=== PATIENT | male | born 1960 | race Caucasian/White ===

== ENCOUNTER 2017-08-25 12:12 | Day surgery (SDC) | payer BC ==
[2017-08-25] VITALS (11 sets, daily range): BP systolic 121–139; BP diastolic 75–84
[~2017-08-25] VITALS: Ht 185.4 cm; Wt 82.1 kg
[~2017-08-25 12:12] MED LIST: ASPIRIN81 MG ORAL; BP pill; BSS 15ml BTL ONE; BSS 500ml btl ONE; Bupivacaine 0.75% 30ml vial INJ ONE; Dexamethasone 4mg/ml vial ONE; EPINEPHrine 1mg/1ml Amp ONE; Goniosol 2.5% Opth Soln - 15ml ONE; Lidocaine 2% MPF 5ml Vial INJ ONE; Maxitrol Opth Oint 3.5gm ONE; Neosporin Oph Soln 5ml Btl ONE; Povidone-Iodine 5% opth solution ONE; TAMSULOSIN HCL0.4 MG ORAL; Tetracaine 0.5% Opth 4ml Soln ONE
[2017-08-25] MEDS ORDERED: Cyclopentolate 1% Opth Sol 2ml ONE (12:13)
[2017-08-25] MEDS: Cyclopentolate 1% Opth Sol 2ml RIGHT EYE SCH ×3 (12:42→13:14)
[2017-08-25] MEDS: Phenylephrine 2.5% Op 2ml Soln RIGHT EYE SCH ×3 (12:43→13:14)
[2017-08-25 13:26] LABS: EOSINOPHILS % (AUTO) 0.6 % (0.0-3.0); LYMPHOCYTES % (AUTO) 18.7 % (20.0-45.0); MEAN CORPUSCULAR HEMOGLOBIN 33.7 PG (27.0-31.0); MEAN CORPUSCULAR HGB CONC 35.4 G/DL (32.0-36.0); MEAN CORPUSCULAR VOLUME 95 FL (80-99); MEAN PLATELET VOLUME 6.6 FL (6.5-10.1); MONOCYTES % (AUTO) 8.5 % (1.0-10.0); NEUTROPHILS % (AUTO) 71.2 % (45.0-75.0); PLATELET COUNT 270 K/UL (150-450); RED BLOOD COUNT 4.95 M/UL (4.70-6.10); WHITE BLOOD COUNT 7.1 K/UL (4.8-10.8)
[2017-08-25 13:33] LABS: ANION GAP 14 (5-15); CALCIUM 9.2 mg/dL (8.6-10.2); CARBON DIOXIDE 28 mEQ/L (20-30); CHLORIDE 95 mEQ/L (98-107); CREATININE 0.7 mg/dL (0.7-1.2); GLOMERULAR FILTRATION RATE > 60 mL/min (>60); HEMOLYSIS 11; POTASSIUM 3.4 mEQ/L (3.4-4.9); SODIUM 137 mEQ/L (135-145)
[2017-08-25] MEDS ORDERED: NS Irrig 1000ml ONE (15:00)
[2017-08-25] MEDS ORDERED: Metoclopramide 10mg/2ml Inj ONE (15:00)
[2017-08-25] MEDS ORDERED: Propofol 200mg/20ml IV ONE (15:00)
[2017-08-25] MEDS ORDERED: LR 1000ml ONE (15:00)
[2017-08-25] MEDS ORDERED: Midazolam 2mg/2ml Inj ONE (15:00)
[2017-08-25] MEDS ORDERED: fentaNYL 100 mcg/2 mL IV ONE (15:00)
[2017-08-25] MEDS ORDERED: Sterile Water Irrig 1000ml IRRIG ONE (15:00)
--- NOTE | 2017-08-25 15:03 | Pre-Procedure Note/Attestation ---
Pre-Procedure Note/Attestation Complete Prior to Procedure Planned Procedure: right Procedure Narrative: 23G PPV/SB/MP/EL/gas vs SO right eye Indications for Procedure Pre-Operative Diagnosis: retinal detachment right eye Attestation I attest that I discussed the nature of the procedure; its benefits; risks and complications; and alternatives (and the risks and benefits of such alternatives ), prior to the procedure, with the patient (or the patient's legal logistics service representative). I attest that, if there was a reasonable possibility of needing a blood transfusion, the patient (or the patient's legal logistics service representative) was given the [facility] standardized written summary, pursuant to the [place] Blood Safety Act ([place] Health and Safety Code # 1645, as amended). I attest that I re-evaluated the patient just prior to the surgery and that there has been no change in the patient's H&P, except as documented below: SELAM BAXTER M.D. Aug 25, 2017 15:03
--- NOTE | 2017-08-25 15:50 | Anethesia Preoperative Eval ---
Anesthesia Pre-op PMH/ROS General Date of Evaluation: Aug 25, 2017 Time of Evaluation: 15:02 Anesthesiologist: Dejon ASA Score: ASA 2 Mallampati Score Class I : Soft palate, uvula, fauces, pillars visible Class II: Soft palate, uvula, fauces visible Class III: Soft palate, base of uvula visible Class IV: Only hard plate visible Mallampati Classification: Class II Surgeon: Christa Diagnosis: retinal detachment right eye Surgical Procedure: vitrectomy right eye with scleral buckle and endolaser Anesthesia History: none Family History: no anesthesia problems Allergies: Coded Allergies: PENICILLINS (Verified Allergy, Unknown, 07/14/17) Medications: see eMAR Past Medical History Cardiovascular: Reports: HTN HEENT: Reports: other - detached retina right eye Musculoskeletal/Integumentary: Reports: OA Anesthesia Pre-op Phys. Exam Physician Exam Last Vital Signs Date Time Temp Pulse Resp B/P (MAP) Pulse Ox O2 Delivery O2 Flow Rate FiO2 08/25/17 13:16 97.8 54 20 121/77 95 Room Air Constitutional: NAD Neurologic: CN 2-12 intact Cardiovascular: RRR Respiratory: CTA Gastrointestinal: S/NT/ND Airway Exam Mallampati Score: Class II MO: full ROM: full Teeth: intact Anesthesia Pre-op A/P Labs Hematology Test 08/25/17 13:10 White Blood Count 7.1 K/UL (4.8-10.8) Red Blood Count 4.95 M/UL (4.70-6.10) Hemoglobin 16.7 G/DL (14.2-18.0) Hematocrit 47.1 % (42.0-52.0) Mean Corpuscular Volume 95 FL (80-99) Mean Corpuscular Hemoglobin 33.7 PG (27.0-31.0) H Mean Corpuscular Hemoglobin Concent 35.4 G/DL (32.0-36.0) Red Cell Distribution Width 11.0 % (11.6-14.8) L Platelet Count 270 K/UL (150-450) Mean Platelet Volume 6.6 FL (6.5-10.1) Neutrophils (%) (Auto) 71.2 % (45.0-75.0) Lymphocytes (%) (Auto) 18.7 % (20.0-45.0) L Monocytes (%) (Auto) 8.5 % (1.0-10.0) Eosinophils (%) (Auto) 0.6 % (0.0-3.0) Basophils (%) (Auto) 1.0 % (0.0-2.0) Chemistry Test 08/25/17 13:10 Sodium Level 137 mEQ/L (135-145) Potassium Level 3.4 mEQ/L (3.4-4.9) Chloride Level 95 mEQ/L (98-107) L Carbon Dioxide Level 28 mEQ/L (20-30) Anion Gap 14 (5-15) Blood Urea Nitrogen 7 mg/dL (7-23) Creatinine 0.7 mg/dL (0.7-1.2) Estimat Glomerular Filtration Rate > 60 mL/min (>60) Glucose Level 87 mg/dL (74-106) Calcium Level 9.2 mg/dL (8.6-10.2) Studies Pre-op Studies: EKG - NSB Risk Assessment & Plan Plan: General LMA per patient and surgeon Status Change Before Surgery: No Pre-Antibiotics Given Within 1 Hr of Incision: Vanessa Armando DIE MAINTENANCE Aug 25, 2017 15:50
--- NOTE | 2017-08-25 15:51 | Immediate Post-Op Evaluation ---
Immediate Post-Op Evalulation Immediate Post-Op Evalulation Date of Evaluation: Aug 25, 2017 IV Fluids: LR 800 ml Blood Products: 0 Estimated Blood Loss: 0 Urinary Output: 0 Blood Pressure Systolic: 131 Blood Pressure Diastolic: 83 Pulse Rate: 68 Respiratory Rate: 22 O2 Sat by Pulse Oximetry: 100 Temperature (Fahrenheit): 98 Pain Score (1-10): 0 Nausea: No Vomiting: No Patient Status: awake, reacts, patent Hydration Status: adequate Given Within 1 Hr of Incision: Vanessa Armando CRNA Aug 25, 2017 15:51
--- NOTE | 2017-08-25 15:52 | 48 Hour Post Anesthesia Eval ---
Post Anesthesia Evaluation Date of Evaluation: Aug 25, 2017 Time of Evaluation: 17:06 Blood Pressure Systolic: 133 0: 82 Pulse Rate: 53 Respiratory Rate: 12 Temperature (Fahrenheit): 98 O2 Sat by Pulse Oximetry: 100 Airway: patent Nausea: No Vomiting: No Pain Intensity: 0 Hydration Status: adequate Mental Status/LOC: patient returned to baseline Follow-up care needed: patient intructions given Vanessa Ashford CRNA Aug 25, 2017 15:52
--- NOTE | 2017-08-25 17:05 | Brief Operative Note ---
Immediate Post Operative Note Operative Note Chief Complaint: blurred vision Pre-op Diagnosis: retinal detachment right eye Procedure: 23G PPV/SB/EL/SO right eye Post-op Diagnosis: same as pre-op Findings: consistent w/pre-op dx studies Surgeon: Christa Anesthesia: general Specimen: none Complications: none Condition: stable Fluids: 500cc Estimated Blood Loss: none Drains: none Implant(s) used?: Yes SELAM BAXTER M.D. Aug 25, 2017 17:05
[2017-08-25] MEDS ORDERED: Norco 5mg/325mg tab ORAL PRN (17:15)
--- NOTE | 2017-08-26 02:00 | Operative Note - Dictated ---
DATE OF OPERATION: 08/25/2017 SURGEON: Harpal Goodwin M.D. PREOPERATIVE DIAGNOSIS: Retinal detachment, right eye. POSTOPERATIVE DIAGNOSIS: Retinal detachment, right eye. Name of operation: A 23-gauge pars plana vitrectomy, scleral buckle, endolaser, and silicone oil, right eye. ANESTHESIA: Local. BLOOD LOSS: None. COMPLICATIONS: None. INDICATIONS: The patient is a 57-year-old male with a history of blurred vision in his right eye. He presents with a retinal detachment following repair of a giant retinal tear. The findings were discussed with the patient as well as the risks, benefits, and alternatives to the above-named procedure and the patient wishes to proceed with surgery. The patient understands the risks include, but are not limited to, loss of vision and loss of the eye. Informed consent was obtained. Description of the procedure: On the day of the procedure, the right eye was noted to be the operative eye and marked. The patient received three sets of the standard preoperative eye drops in the holding area. The patient was then brought to the operating room with appropriate anesthesia and monitors were placed. The right eye was again identified as the operative eye during time-out and the nonoperative eye was patched and shielded. The patient then underwent general anesthesia administered by the anesthesiologist. He also received a retrobulbar block consisting of 1:1 mixture of 2% lidocaine without epinephrine and 0.75% bupivacaine for a total of 5 mL. The operative eye was then prepped and draped in the usual sterile ophthalmic fashion. A lid speculum was placed in the operative eye. A 360-degree conjunctival peritomy was performed with nasal and temporal relaxing incisions. The rectus muscles were isolated and looped with 2-0 silk suture. A #42 band was then passed underneath the rectus muscles and fastened superonasally with a #70 sleeve. The buckle was sutured in all 4 quadrants using 5-0 nylon. The buckle was tightened to appropriate tension and the ends trimmed. A 23-gauge cannulas were then inserted with the infusion located inferotemporally. A standard three port pars plana vitrectomy was then performed. The retina was inspected and there was recurrent retinal detachment with a giant retinal tear superiorly. A nasal retinotomy was made using endodiathermy and the subretinal fluid was drained through the retinotomy. An air-fluid exchange was then performed. Endolaser was applied to the retinal break, and in 360 degree barricade fashion, 1000 centistokes of silicone oil was then infused into the eye. The 22-gauge cannulas were then removed. Sclerotomies were sutured using 7-0 Vicryl. The traction sutures were then removed. The patient received additional posterior sub-Ten[place]'s Marcaine. The conjunctival peritomy was sutured using 6-0 plain gut. The wounds were checked for leakage and found to be watertight. The intraocular pressure was palpated and found to be within normal limits. The patient then received subconjunctival injections of vancomycin and dexamethasone. The lid speculum and drapes were then removed. Maxitrol ointment and atropine eye drops were applied to the eye. The eye was patched and shielded. The patient was awakened from general anesthesia by the anesthesiologist. The patient tolerated the procedure well and was returned to the postoperative care area in good condition. Harpal Goodwin M.D. DR: Jaguar JOB#: [id number] CC:
--- NOTE | 2017-09-02 23:20 | Cardiology Report ---
APPROVED REPORT EKG Measurement Heart [id number] CT [id number] [id number] Sinus bradycardia Otherwise normal ECG
== END 2017-08-25 18:16 | disposition home or self-care (01) ==
LOC: SUR 12:12
DX: H33.21 Serous retinal detachment, right eye (principal); H53.8 Other visual disturbances; Z88.0 Allergy status to penicillin; M19.90 Unspecified osteoarthritis, unspecified site; I10 Essential (primary) hypertension
CPT/HCPCS: 36415; 67108; 80048; 85025; 93005; J0171; J1100; J2250; J2405; J2704; J2765; J3010; J3370; J3490; J7120; 94003; 94150

== ENCOUNTER 2017-12-29 10:31 | Day surgery (SDC) | payer BC ==
[~2017-12-29] VITALS: Ht 185.4 cm; Wt 83.9 kg
[2017-12-29] VITALS (8 sets, daily range): BP systolic 127–151; BP diastolic 76–99
[~2017-12-29 10:31] MED LIST changes: -BSS 15ml BTL ONE; -BSS 500ml btl ONE; -Bupivacaine 0.75% 30ml vial INJ ONE; -Dexamethasone 4mg/ml vial ONE; -EPINEPHrine 1mg/1ml Amp ONE; -Goniosol 2.5% Opth Soln - 15ml ONE; -Lidocaine 2% MPF 5ml Vial INJ ONE; -Maxitrol Opth Oint 3.5gm ONE; -Neosporin Oph Soln 5ml Btl ONE; -Povidone-Iodine 5% opth solution ONE; -Tetracaine 0.5% Opth 4ml Soln ONE
[2017-12-29] MEDS ORDERED: Cyclopentolate 1% Opth Sol 2ml ONE (11:12)
[2017-12-29] MEDS ORDERED: Phenylephrine 2.5% Op 2ml Soln ONE (11:12)
[2017-12-29] MEDS: Cyclopentolate 1% Opth Sol 2ml RIGHT EYE SCH ×3 (11:16→11:28)
[2017-12-29] MEDS: Phenylephrine 2.5% Op 2ml Soln RIGHT EYE SCH ×3 (11:16→11:28)
[2017-12-29] MEDS ORDERED: LOSARTAN POTAS100 MG ORAL (11:22)
[2017-12-29] MEDS ORDERED: LR 1000ml 1,000 ML IVLG SCH (12:55)
--- NOTE | 2017-12-29 12:55 | Anethesia Preoperative Eval ---
Anesthesia Pre-op PMH/ROS General Date of Evaluation: Dec 29, 2017 Anesthesiologist: Jose Armando ASA Score: ASA 2 Mallampati Score Class I : Soft palate, uvula, fauces, pillars visible Class II: Soft palate, uvula, fauces visible Class III: Soft palate, base of uvula visible Class IV: Only hard plate visible Mallampati Classification: Class II Surgeon: Christa Diagnosis: Right eye retinal detachment Surgical Procedure: Right eye silicone removal Anesthesia History: none Family History: no anesthesia problems Allergies: Coded Allergies: PENICILLINS (Verified Allergy, Unknown, 07/14/17) Medications: see eMAR Past Medical History Cardiovascular: Reports: HTN, Denies: CAD, TN, valve dz, arrhythmia, other Pulmonary: Denies: asthma, COPD, OBIE, other Gastrointestinal/Genitourinary: Denies: GERD, CRI, ESRD, other Neurologic/Psychiatric: Denies: dementia, CVA, depression/anxiety, TIA, other Endocrine: Denies: DM, hypothyroidism, steroids, other HEENT: Denies: cataract (L), cataract (R), glaucoma, BEAVER (L), BEAVER (R), other Hematology/Immune: Denies: anemia, DVT, bleeding disorder, other Musculoskeletal/Integumentary: Reports: OA, Denies: RA, DJD, DDD, edema, other PSxH Narrative: multiple right eye sx, bilateral TKRs Anesthesia Pre-op Phys. Exam Physician Exam Last Vital Signs Date Time Temp Pulse Resp B/P (MAP) Pulse Ox O2 Delivery O2 Flow Rate FiO2 12/29/17 11:19 98.3 54 18 127/76 97 Room Air Constitutional: NAD Cardiovascular: RRR Respiratory: CTA Airway Exam Mallampati Score: Class II MO: full ROM: full Teeth: intact Anesthesia Pre-op A/P Labs see chart Studies Pre-op Studies: EKG - sr Risk Assessment & Plan Assessment: ASA II Plan: MAC Status Change Before Surgery: No Pre-Antibiotics Drug: N/A KLAUDIA QUIROGA M.D. Dec 29, 2017 12:55
[2017-12-29] MEDS ORDERED: DiphenhydrAMINE 50mg/ml Inj IVP PRN (13:00)
[2017-12-29] MEDS ORDERED: fentaNYL 100 mcg/2 mL IV ONE (13:00)
[2017-12-29] MEDS ORDERED: Propofol 200mg/20ml IV ONE (13:00)
[2017-12-29] MEDS ORDERED: Sterile Water Irrig 1000ml IRRIG ONE (13:00)
[2017-12-29] MEDS ORDERED: LR 1000ml ONE (13:00)
[2017-12-29] MEDS ORDERED: Lidocaine 1% MPF 10mg/ml 5ml ONE (13:00)
[2017-12-29] MEDS ORDERED: Midazolam 2mg/2ml Inj ONE (13:00)
[2017-12-29] MEDS ORDERED: NS Irrig 1000ml ONE (13:00)
[2017-12-29] MEDS ORDERED: Sodium Chloride 10ml vial INJ ONE (13:00)
[2017-12-29] MEDS ORDERED: Kenalog-40 1ml Vial ONE (13:27)
[2017-12-29] MEDS ORDERED: BSS 500ml btl ONE (13:27)
[2017-12-29] MEDS ORDERED: Dexamethasone 4mg/ml vial ONE (13:28)
[2017-12-29] MEDS ORDERED: Maxitrol Opth Oint 3.5gm ONE (13:28)
[2017-12-29] MEDS ORDERED: Povidone-Iodine 5% opth solution ONE (13:28)
[2017-12-29] MEDS ORDERED: Tetracaine 0.5% Opth 4ml Soln ONE (13:28)
--- NOTE | 2017-12-29 13:28 | Pre-Procedure Note/Attestation ---
Pre-Procedure Note/Attestation Complete Prior to Procedure Planned Procedure: right Procedure Narrative: 23G PPV/SO removal/EL/gas vs AFx right eye Indications for Procedure Pre-Operative Diagnosis: retinal detachment Attestation I attest that I discussed the nature of the procedure; its benefits; risks and complications; and alternatives (and the risks and benefits of such alternatives ), prior to the procedure, with the patient (or the patient's legal front desk representative). I attest that, if there was a reasonable possibility of needing a blood transfusion, the patient (or the patient's legal front desk representative) was given the [facility] standardized written summary, pursuant to the [place] Blood Safety Act ([place] Health and Safety Code # 1645, as amended). I attest that I re-evaluated the patient just prior to the surgery and that there has been no change in the patient's H&P, except as documented below: SELAM BAXTER M.D. Dec 29, 2017 13:28
[2017-12-29] MEDS ORDERED: Lidocaine 2% MPF 5ml Vial INJ ONE (13:29)
[2017-12-29] MEDS ORDERED: EPINEPHrine 1mg/1ml Amp ONE (13:29)
[2017-12-29] MEDS ORDERED: Bupivacaine 0.75% 30ml vial INJ ONE (13:30)
[2017-12-29] MEDS ORDERED: Goniosol 2.5% Opth Soln - 15ml ONE (13:30)
[2017-12-29] MEDS ORDERED: BSS 15ml BTL ONE ×2 (13:30→13:40)
--- NOTE | 2017-12-29 14:19 | Immediate Post-Op Evaluation ---
Immediate Post-Op Evalulation Immediate Post-Op Evalulation Procedure: Right eye vitrectomy, endolaser, silicone oil removal, air fluid exchange Date of Evaluation: Dec 29, 2017 Time of Evaluation: 15:08 IV Fluids: 600 Blood Products: 0 Estimated Blood Loss: 0 Urinary Output: 0 Blood Pressure Systolic: 151 Blood Pressure Diastolic: 95 Pulse Rate: 56 Respiratory Rate: 16 O2 Sat by Pulse Oximetry: 98 Temperature (Fahrenheit): 98.3 Pain Score (1-10): 0 Nausea: No Vomiting: No Complications 0 Patient Status: awake, reacts, patent, none Hydration Status: adequate Drug: N/A KLAUDIA QUIROGA M.D. Dec 29, 2017 14:19
--- NOTE | 2017-12-29 14:20 | 48 Hour Post Anesthesia Eval ---
Post Anesthesia Evaluation Procedure: Right eye vitrectomy, endolaser, silicone oil removal, air fluid exchange Date of Evaluation: Dec 29, 2017 Airway: patent Nausea: No Vomiting: No Pain Intensity: 0 Hydration Status: adequate Cardiopulmonary Status: at baseline Mental Status/LOC: patient returned to baseline Post-Anesthesia Complications: 0 Follow-up care needed: ready to discharge KLAUDIA QUIROGA M.D. Dec 29, 2017 14:20
--- NOTE | 2017-12-29 15:04 | Brief Operative Note ---
Immediate Post Operative Note Operative Note Chief Complaint: blurred vision Pre-op Diagnosis: retinal detachment Procedure: 23G PPV/SO removal/EL/AFx right eye Post-op Diagnosis: same Post-op Diagnosis: same as pre-op Surgeon: Christa Anesthesia: local Specimen: none Complications: none Condition: stable Fluids: less than 250cc Estimated Blood Loss: none Drains: none Implant(s) used?: No SELAM BAXTER M.D. Dec 29, 2017 15:04
[2017-12-29] MEDS ORDERED: Norco 5mg/325mg tab ORAL PRN (15:15)
--- NOTE | 2017-12-29 20:46 | Operative Note - Dictated ---
DATE OF OPERATION: 12/29/2017 SURGEON: Harpal Goodwin M.D. PREOPERATIVE DIAGNOSIS: Retinal detachment, right eye. POSTOPERATIVE DIAGNOSIS: Retinal detachment, right eye. NAME OF OPERATION: A 23-gauge pars plana vitrectomy, silicone oil removal, endolaser, and air-fluid exchange, right eye. ANESTHESIA: Local. BLOOD LOSS: None. COMPLICATIONS: None. INDICATIONS: The patient is a 57-year-old male with a history of blurred vision in his right eye. He is status post retinal detachment repair with silicone oil and requests silicone oil removal for visual rehabilitation. The findings were discussed with the patient as well as the risks, benefits, and alternatives to the above-named procedure and the patient wishes to proceed with surgery. The patient understands that the risks include, but are not limited to, loss of vision and loss of the eye. Informed consent was obtained. DESCRIPTION OF THE PROCEDURE: On the day of the procedure, the right eye was noted to be the operative eye and marked. The patient received 3 sets of the standard preoperative eye drops in the holding area. The patient was then brought to the operating room with appropriate anesthesia and monitors were placed. The right eye was again identified as the operative eye during the time-out. The nonoperative eye was patched and shielded. The operative eye then received a retrobulbar block consisting of a 1:1 mixture of 2% lidocaine without epinephrine and 0.75% bupivacaine for a total of 5 mL. Anesthesia and akinesia were noted to have been obtained. The operative eye was then prepped and draped in the usual sterile ophthalmic fashion. A lid speculum was placed in the operative eye. A 22-gauge cannulas were placed with infusion located inferotemporally. A standard three-port pars plana vitrectomy was then performed. The silicone oil was then removed with a combination of the active extrusion and also with a superior nasal sclerostomy that was made using MVR blade after a limited conjunctival peritomy was made using Yu scissors. Endolaser was applied to supplement the previous laser barricade and three air-fluid exchanges were then performed. The retina was inspected and noted to be flat. The 23-gauge cannulas were then removed. The sclerotomies and sclerostomy were all sutured using 7-0 Vicryl. The wounds were checked for leakage and found to be watertight. The intraocular pressure was palpated and found to be within normal limits. The patient then received subconjunctival injections of vancomycin and dexamethasone. The lid speculum and drapes were then removed. Maxitrol ointment and atropine eye drops were applied to the eye and the eye was patched and shielded. The patient tolerated the procedure well and was returned to the postoperative care area in good condition. Harpal Goodwin M.D. DR: APRIL JOB#: [id number] CC:
== END 2017-12-29 16:10 | disposition home or self-care (01) ==
LOC: SUR 10:31
DX: H33.21 Serous retinal detachment, right eye (principal); I10 Essential (primary) hypertension; Z87.891 Personal history of nicotine dependence; M19.90 Unspecified osteoarthritis, unspecified site; Z96.653 Presence of artificial knee joint, bilateral; Z88.0 Allergy status to penicillin
CPT/HCPCS: 67040; 67121; J0171; J1100; J1200; J2250; J2704; J3010; J3370; J3490; J7120; 94003; 94150